=== PATIENT | male | born 1995 | race Caucasian/White ===

== ENCOUNTER 2017-08-06 12:50 | Emergency (ER) | payer OTHER ==
[2017-08-06] MEDS ORDERED: IBUPROFEN 800 MG TABLET PO ONE (15:16)
[2017-08-06] MEDS ORDERED: ACETAMINOPHEN 325 MG TABLET PO ONE (15:16)
[2017-08-06 15:19] VITALS: BP 131/86
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
== END 2017-08-06 16:48 | disposition home or self-care (01) ==
LOC: ER 12:50
DX: S16.1XXA Strain of muscle, fascia and tendon at neck level, initial encounter (principal); S39.012A Strain of muscle, fascia and tendon of lower back, initial encounter; S46.912A Strain of unspecified muscle, fascia and tendon at shoulder and upper arm level, left arm, initial encounter; S50.02XA Contusion of left elbow, initial encounter; R51 Headache; V49.40XA Driver injured in collision with unspecified motor vehicles in traffic accident, initial encounter; J45.909 Unspecified asthma, uncomplicated
CPT/HCPCS: 72110; 72125; 99284

== ENCOUNTER 2017-10-13 23:15 | Emergency (ER) | payer OTHER ==
[2017-10-13 23:38] VITALS: BP 130/62
--- NOTE | 2017-10-14 00:45 | ER Document Report ---
ED General - General Chief Complaint: Ear Pain Stated Complaint: EARACHE Time Seen by Provider: 10/14/17 00:37 TRAVEL OUTSIDE OF THE [place] IN LAST 30 DAYS: No - HPI Notes: 22-year-old male presents with bilateral ear pain. Patient has a history of remote "ear infections". Describes pain over the last day or 2, gradual onset, right greater than left. Achy, throbbing. Worse with moving his jaw. No recent runny nose or congestion, no recent allergy type symptoms. Nonradiating except as described. No other modifying factors, no other associated symptoms, no other provocative or palliative factors. - Related Data Allergies/Adverse Reactions: No Known Allergies Allergy (Unverified 12/04/14 16:49) Past Medical History - General Information source: Patient - Social History Smoking Status: Smoker,Current Status Unk Family History: Reviewed & Not Pertinent - Medical History Medical History: Negative Pulmonary Medical History: Reports: Hx Asthma Renal/ Medical History: Denies: Hx Peritoneal Dialysis Past Surgical History: Reports: Other - cyst removal - Immunizations Immunizations up to date: Yes Hx Diphtheria, Pertussis, Tetanus Vaccination: Yes Review of Systems - Review of Systems Notes: Denies any chest pain, abdominal pain, vomiting or headache Physical Exam - Vital signs Vitals: Temp Pulse Resp BP Pulse Ox 98.5 F 80 18 130/62 H 97 10/13/17 23:16 10/13/17 23:16 10/13/17 23:16 10/13/17 23:16 10/13/17 23:16 - Notes Notes: General: Well developed . HEENT: Normocephalic, atraumatic. Pupils equal round reactive to light. No JVD. Bilateral tympanic membranes show mild serous effusion without erythema, right greater than left. Chest: No trauma. Respiratory: Good air exchange, normal excursion. Cardiac: Regular rhythm. No murmurs or gallops. Abdomen: Soft, benign. Nondistended. Nontender. Back: No asymmetry or gross abnormality. Motor: Grossly normal power and tone. Neurologic: Alert, nonfocal. Cranial nerves II-12 are intact. Sensation intact. Vascular: Well perfused. Normal peripheral pulses. Skin: No petechiae or purpura. Course - Re-evaluation Re-evalutation: 10/14/17 00:53 This is a well-appearing male patient with likely serous otitis media, no indication for antibiotics. He is given instructions with regard to use of decongestants, Tylenol or ibuprofen for pain, outpatient follow-up. - Vital Signs Vital signs: Temp Pulse Resp BP Pulse Ox 98.5 F 80 18 130/62 H 97 10/13/17 23:16 10/13/17 23:16 10/13/17 23:16 10/13/17 23:16 10/13/17 23:16 Discharge - Discharge Clinical Impression: Serous otitis media Qualifiers: Chronicity: acute Laterality: bilateral Recurrence: not specified as recurrent Qualified Code(s): H65.03 - Acute serous otitis media, bilateral Condition: Good Disposition: HOME, SELF-CARE Instructions: Serous Otitis Media ([facility]) Prescriptions: Pseudoephedrine HCl [Sudafed] 30 mg PO Q6H #10 tablet
[2017-10-14] MEDS ORDERED: IBUPROFEN 600 MG TABLET PO ONE (00:55)
== END 2017-10-14 01:03 | disposition home or self-care (01) ==
LOC: ER 23:15
DX: H65.03 Acute serous otitis media, bilateral (principal); H92.03 Otalgia, bilateral; J45.909 Unspecified asthma, uncomplicated
CPT/HCPCS: 99282